=== PATIENT | male | born 1960 | race Hispanic/Latino ===

== ENCOUNTER 2017-01-14 11:27 | Emergency (ER) | payer MEDICARE, BC ==
[2017-01-14 11:27] VITALS: BMI 26.7
[2017-01-14 11:35] VITALS: RESP 16; TEMP 98.1; O2SAT 98
[2017-01-14] MEDS ORDERED: TDAP Vaccine 0.5 mL Syr IM ONE (11:51)
[2017-01-14] MEDS ORDERED: Tmp-Smz 800 mg-160 mg DS Tab PO STA (11:51)
--- NOTE | 2017-01-14 12:33 | ED PDOC ---
Arrival/HPI - General Chief Complaint: Abnormal Skin Integrity Time Seen by Provider: 01/14/17 11:28 Historian: Patient - History of Present Illness Narrative History of Present Illness (Text): 01/14/17 12:39 56yr old male presents today with laceration to left thumb with box stapler. denies pain. denies decreased rom of thumb. pt unsure of last tetanus shot. incident occurred prior to arrival. Time/Duration: Prior to Arrival Symptom Onset: Sudden Symptom Course: Unchanged Past Medical History - Provider Review Nursing Documentation Reviewed: Yes - Travel History Have you recently traveled outside [place] w/in the past 3 mons?: No - Infectious Disease Hx of Infectious Diseases: None - Tetanus Immunization Tetanus Immunization: Unknown - Cardiac Hx Cardiac Disorders: Yes (htn, high cholesterol) Hx Hypertension: Yes Hx Pacemaker: No Hx Peripheral Vascular Disease: Yes Other/Comment: right foot 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, right foot 2nd toe small 2cm ulcer - Pulmonary Hx Pneumonia: Yes - Neurological Hx Paralysis: No Hx Transient Ischemic Attacks (TIA): Yes (difficulty speaking resolved) Other/Comment: confused - HEENT Hx HEENT Disorder: Yes (diabetic retinopothy,left eye ctaract sx) Hx Cataracts: Yes - Renal Hx Renal Disorder: Yes Hx Dialysis: Yes ([facility]) Date of Last Dialysis Treatment: 07/19/13 Hx Renal Failure: Yes Other/Comment: esrd, renal dialysis t t sat, right av shunt, on hd 2 yrs - Endocrine/Metabolic Hx Diabetes Mellitus Type 1: Yes Hx Diabetes Mellitus Type 2: Yes - Hematological/Oncological Hx Anemia: Yes Hx Blood Transfusions: Yes Hx Blood Transfusion Reaction: No - Musculoskeletal/Rheumatological Hx Musculoskeletal Disorders: Yes Hx Arthritis: Yes (both feet) Hx Falls: No - Gastrointestinal Hx Gastroesophageal Reflux: Yes - Psychiatric Hx Anxiety: Yes Hx Depression: No Hx Emotional Abuse: No Hx Physical Abuse: No Hx Substance Use: No - Surgical History Hx Amputation: Yes (R 3rd toe) Hx Musculoskeletal Surgery: Yes (R 3rd, 4th, and 5th toe amputation) - Anesthesia Hx Anesthesia: Yes - Suicidal Assessment Feels Threatened In Home Enviroment: No Family/Social History - Physician Review Nursing Documentation Reviewed: Yes Family/Social History: Unknown Family HX Smoking Status: Never Smoked Hx Alcohol Use: No Hx Substance Use: No Hx Substance Use Treatment: No Allergies/Home Meds Allergies/Adverse Reactions: Allergies Penicillins Allergy (Verified 01/14/17 11:28) ANAPHYLAXIS per Home Medications: Home Meds Medication Instructions Recorded Confirmed Alprazolam [Xanax] 0.5 mg PO PRN PRN 02/06/15 02/06/15 Cinacalcet [Sensipar] 30 mg PO QOTHERDAY 02/06/15 02/06/15 Ferrous Sulfate [Ferrous Sulfate] 65 mg PO DAILY 02/06/15 02/06/15 Insulin Human (NPH)/Regular 5 units SUBCUT PRN PRN 02/06/15 02/06/15 [Novolin 70/30 (70/30 units/ml) 10 ml] Lactulose [Generlac] 2 tbs PO DAILY 02/06/15 02/06/15 Lanthanum [Fosrenol] 1 tab PO AC 02/06/15 02/06/15 Multivitamin [Allyson-Plus G] 1 cap PO DAILY 02/06/15 02/06/15 Nebivolol HCl [Bystolic] 5 mg PO DAILY 02/06/15 02/06/15 Omeprazole [Prilosec] 40 mg PO DAILY 02/06/15 02/06/15 Temazepam [Temazepam] 60 mg PO HS 02/06/15 02/06/15 Valsartan [Diovan] 320 mg PO DAILY 02/06/15 02/06/15 amLODIPine [Norvasc] 10 mg PO DAILY 02/06/15 02/06/15 oxyCODONE/Acetaminophen [Percocet 1 tab PO PRN PRN 02/06/15 02/06/15 5/325 mg Tab] Gabapentin [Neurontin] 200 mg PO BID PRN 02/07/15 02/07/15 Review of Systems - Review of Systems Constitutional: absent: Fatigue, Fevers Respiratory: absent: SOB, Cough Cardiovascular: absent: Chest Pain, Palpitations Musculoskeletal: Arthralgias Skin: Laceration (left thumb) Neurological: absent: Headache, Dizziness Psychiatric: absent: Anxiety, Depression Physical Exam Vital Signs Reviewed: Yes Vital Signs Temp Pulse Resp BP Pulse Ox 01/14/17 11:28 98.1 F 70 16 187/76 H 98 Temperature: Afebrile Blood Pressure: Hypertensive Pulse: Regular Respiratory Rate: Normal Appearance: Positive for: Well-Appearing, Non-Toxic, Comfortable Pain Distress: None Mental Status: Positive for: Alert and Oriented X 3 - Systems Exam Head: Present: Atraumatic Mouth: Present: Moist Mucous Membranes Neck: Present: Normal Range of Motion Respiratory/Chest: Present: Clear to Auscultation Cardiovascular: Present: Regular Rate and Rhythm Upper Extremity: Present: NORMAL PULSES, Neurovascularly Intact, Capillary Refill < 2s. No: Normal ROM (left thumb; there is a large 4cm linear laceration over the dorsal aspect of the thumb along the mcp joint; minimal bleeding noted. ), Tenderness, Swelling, Erythema, Deformity Neurological: Present: GCS=15 Skin: Present: Warm, Dry Psychiatric: Present: Alert, Oriented x 3 Medical Decision Making ED Course and Treatment: 01/14/17 12:24 pt non toxic well appearing; no distress. xray left thumb; no fracture or foreign body tetanus updated pt started on bactrim po case discussed with dr. crowell patients PMD who saw patient at bedside. will refer to dr. demarco/taty for f/u. case discussed with dr. posey in depth; she advised irrigation and repair and call monday to schedule f/u appointment for mondayJanuary 17 or january 19. Wound irrigated well with high pressure irrigation Laceration repair: 8 sutures placed Bacitracin and dressing applied finger splint applied. Patient was advised to keep the wound clean and dry, apply bacitracin twice daily, take antibiotics as prescribed. advised f/u with the Hand specialist as soon as possible. Advised to return immediately if signs of infection develop or return if any other concerning symptoms develop Impression: Laceration, thumb Motrin every 6 hours as needed for pain Bactrim DS one tablet twice daily x 7 days Keep the wound clean and dry, apply bacitracin twice daily Return in 10 days for suture removal Return immediately if signs of infection develop: High fevers, increasing pain, redness, swelling, purulent discharge Follow up with the hand specialist dr. posey; call on monday to schedule an appointment. . Followup with primary care physician within the next 2 days Return if any other concerning symptoms develop - RAD Interpretation Radiology Orders: 01/14/17 11:51 HAND LEFT THUMB [RAD] Stat - Medication Orders Current Medication Orders: Discontinued Medications Tetanus/Reduced Diphtheria/Acell Pertussis (Boostrix Vaccine Inj) 0.5 ml IM .ONCE ONE Stop: 01/14/17 11:52 Last Admin: 01/14/17 12:16 Dose: 0.5 ml Trimethoprim/Sulfamethoxazole (Bactrim Ds Tab) 1 tab PO STAT STA PRN Reason: Protocol Stop: 01/14/17 11:52 Last Admin: 01/14/17 12:16 Dose: 1 tab Procedure: Wound Repair - Procedure Procedure: Wound Repair: thumb laceration - Consent Obtained Consent obtained: Verbal - Performed by Performed by: Mid-level Provider - Indications Indication(s):: Laceration - Location Location:: Dorsal Finger:: Left, Thumb Shape:: Linear Dimensions Length cm: 4cm - Anesthetic Technique Local/Regional Anesthetic:: Lidocaine 1% (2cc) - Debris Debris:: None - Irrigated Irrigated with ml of normal saline: copious amounts of NS using high pressure irrigation - Complexity Complexity:: Simple (one layer) - Wound repair method Sutures:: # (8), Size (5.0), Type (nylon), Technique (interrupted) - Complications Complications: none - Patient tolerated procedure Patient Tolerated Procedure:: Well Disposition/Present on Arrival - Present on Arrival Any Indicators Present on Arrival: Yes History of DVT/PE: No History of Uncontrolled Diabetes: Yes Urinary Catheter: No History of Decub. Ulcer: No History Surgical Site Infection Following: None - Disposition Have Diagnosis and Disposition been Completed?: Yes Diagnosis: Laceration of thumb Disposition: HOME/ ROUTINE Disposition Time: 12:37 Patient Plan: Discharge Condition: GOOD Discharge Instructions (ExitCare): Laceration (ED) Additional Instructions: tylenol every 4 hours as needed for pain. Bactrim DS one tablet twice daily x 7 days Keep the wound clean and dry, apply bacitracin twice daily Return in 10 days for suture removal Return immediately if signs of infection develop: High fevers, increasing pain, redness, swelling, purulent discharge Follow up with the hand specialist (dr. posey); call on monday to schedule an appointment. . Followup with primary care physician within the next 2 days Return if any other concerning symptoms develop Prescriptions: Sulfamethoxazole/Trimethoprim [Bactrim DS 800 mg-160 mg] 1 tab PO BID #14 tab Referrals: Kely Posey MD [Non-Staff] - Follow up with primary George Crowell MD [Staff Provider] - Follow up with primary
--- NOTE | 2017-01-14 12:44 | RAD ---
PROCEDURE: Left Hand and thumb Radiographs. HISTORY: left thumb laceration COMPARISON: None. FINDINGS: BONES: Normal. No fracture. JOINTS: Normal. No osteoarthritic changes. SOFT TISSUES: Normal. OTHER FINDINGS: None. IMPRESSION: No fracture or foreign body
[2017-01-14] MEDS ORDERED: Lidocaine 1% Inj (20ml) ONE (12:50)
[2017-01-14 13:44] VITALS: BP 180/85; PULSE 62
== END 2017-01-14 13:44 | disposition home or self-care (01) ==
LOC: ED 11:27
DX: S61.012A Laceration without foreign body of left thumb without damage to nail, initial encounter (principal); W27.8XXA Contact with other nonpowered hand tool, initial encounter; Y93.89 Activity, other specified; Y92.89 Other specified places as the place of occurrence of the external cause; Z23 Encounter for immunization

== ENCOUNTER 2017-01-31 21:45 | Observation (INO) | payer MEDICARE, BC ==
--- NOTE | 2017-01-31 22:03 | EDPD ---
HPI Stroke - General Time Seen by Provider: 01/31/17 21:53 Chief Complaint: Weakness/Neurological Deficit Historian: Patient, Family - History of Present Illness Narrative History of Present Illness (Free Text): 01/31/17 21:59 Gene Rico is a 56 year old male, whose past medical history includes ESRD on hemodialysis, diabetes, TIA, and hypertension, who presents to the accompanied by family complaining of slurred speech. Patient reports he has been experiencing intermittent slurred speech with associated weakness for the past 5 days, following dialysis. Patient is ataxic with unsteady gait. Patient states slurred speech has resolved currently but is still unable to ambulate on his own secondary to weakness. Patient denies headache, dizziness, focal deficits, any chest pain, shortness of breath, nausea, vomiting, diarrhea, neck pain, or any other complaints. Date:: 01/31/17 Time: 21:59 Onset:: Days Timing: Intermittent Context: Home Associated Symptoms: other (Sluured speech, ataxia) Exacerbated by: Nothing Relieved by: Nothing - Location Location: Speech rTPA Inclusion/Exclusion - Refusal of Treatment Patient Refused Treatment: No - Inclusion Criteria for Altepase Patient is 18 years or Older: Yes The Clinical Diagnosis of Ischemic Stroke That is Causing a Potentially Disabling Neurological Deficit: No Time of Onset is Well Established to be Less Than 270 Minute Before Treatment Would Begin: No Risk/Benefit Discussed With Patient/Family Member Present: Yes - Exclusion Criteria for Altepase Uncontrolled Hypertension at Time of Treatment (Systolic BP above 185 or Diastolic BP above 110 mmHg): No Active Internal Bleeding: No Evidence of an Intracranial Hemorrhage: No Evidence of Major Acute Infarct With Signs Greater Than 1/3 MCA Territory: No Suspicion of Subarachnoid Hemorrhage on Pretreatment Evaluation Even if CT Head Negative For Hemorrhage: No - Warning to TPA With Conditions Following Conditions Weighed Against Anticipated Benefit: Yes Condition: Stroke Serevity Too Mild, Rapid Improvement Past Medical History - Provider Review Nursing Documentation Reviewed: Yes - Infectious Disease Hx of Infectious Diseases: None - Tetanus Immunization Tetanus Immunization: Unknown - Cardiac Hx Cardiac Disorders: Yes (htn, high cholesterol) Hx Hypertension: Yes Hx Pacemaker: No Hx Peripheral Vascular Disease: Yes Other/Comment: right foot 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, right foot 2nd toe small 2cm ulcer - Pulmonary Hx Pneumonia: Yes - Neurological Hx Paralysis: No Hx Transient Ischemic Attacks (TIA): Yes (difficulty speaking resolved) Other/Comment: confused - HEENT Hx HEENT Disorder: Yes (diabetic retinopothy,left eye ctaract sx) Hx Cataracts: Yes - Renal Hx Renal Disorder: Yes Hx Dialysis: Yes (MWF) Date of Last Dialysis Treatment: 07/19/13 Hx Renal Failure: Yes Other/Comment: esrd, renal dialysis t t sat, right av shunt, on hd 2 yrs - Endocrine/Metabolic Hx Diabetes Mellitus Type 1: Yes Hx Diabetes Mellitus Type 2: Yes - Hematological/Oncological Hx Anemia: Yes Hx Blood Transfusions: Yes Hx Blood Transfusion Reaction: No - Musculoskeletal/Rheumatological Hx Musculoskeletal Disorders: Yes Hx Arthritis: Yes (both feet) Hx Falls: No - Gastrointestinal Hx Gastroesophageal Reflux: Yes - Psychiatric Hx Anxiety: Yes Hx Depression: No Hx Emotional Abuse: No Hx Physical Abuse: No Hx Substance Use: No - Surgical History Hx Amputation: Yes (R 3rd toe) Hx Musculoskeletal Surgery: Yes (R 3rd, 4th, and 5th toe amputation) - Anesthesia Hx Anesthesia: Yes - Suicidal Assessment Feels Threatened In Home Enviroment: No Family/Social History - Family/Social History Family History: Non-Contributory - Review Nursing documentation reviewed.: Yes Allergies/Home Meds Allergies/Adverse Reactions: Allergies Penicillins Allergy (Verified 01/14/17 11:28) ANAPHYLAXIS per Home Medications: Home Meds Medication Instructions Recorded Confirmed Alprazolam [Xanax] 0.5 mg PO PRN PRN 02/06/15 02/06/15 Cinacalcet [Sensipar] 30 mg PO QOTHERDAY 02/06/15 02/06/15 Ferrous Sulfate [Ferrous Sulfate] 65 mg PO DAILY 02/06/15 02/06/15 Insulin Human (NPH)/Regular 5 units SUBCUT PRN PRN 02/06/15 02/06/15 [Novolin 70/30 (70/30 units/ml) 10 ml] Lactulose [Generlac] 2 tbs PO DAILY 02/06/15 02/06/15 Lanthanum [Fosrenol] 1 tab PO AC 02/06/15 02/06/15 Multivitamin [Allyson-Plus G] 1 cap PO DAILY 02/06/15 02/06/15 Nebivolol HCl [Bystolic] 5 mg PO DAILY 02/06/15 02/06/15 Omeprazole [Prilosec] 40 mg PO DAILY 02/06/15 02/06/15 Temazepam [Temazepam] 60 mg PO HS 02/06/15 02/06/15 Valsartan [Diovan] 320 mg PO DAILY 02/06/15 02/06/15 amLODIPine [Norvasc] 10 mg PO DAILY 02/06/15 02/06/15 oxyCODONE/Acetaminophen [Percocet 1 tab PO PRN PRN 02/06/15 02/06/15 5/325 mg Tab] Gabapentin [Neurontin] 200 mg PO BID PRN 02/07/15 02/07/15 Review of Systems - Physician Review All systems were reviewed & negative as marked: Yes - Review of Systems Constitutional: Normal Eyes: Normal ENT: Normal Respiratory: Normal. absent: SOB, Cough Cardiovascular: Normal. absent: Chest Pain Gastrointestinal: Normal. absent: Abdominal Pain, Diarrhea, Nausea, Vomiting Genitourinary Male: Normal Musculoskeletal: Normal. absent: Back Pain, Neck Pain Skin: Normal Neurological: Gait Changes, Speech Changes (+slurred speech), Other (+ataxia) Endocrine: Normal Hemo/Lymphatic: Normal Psychiatric: Normal ED Stroke Physical Exam Vital Signs Reviewed: Yes Vital Signs Temp Pulse Resp BP Pulse Ox 01/31/17 21:52 98.1 F 70 13 178/82 H 99 Temperature: Afebrile Blood Pressure: Normal Pulse: Regular Respiratory Rate: Normal Appearance: Positive for: Well-Appearing, Non-Toxic, Comfortable Pain Distress: None Mental Status: Positive for: Alert and Oriented X 3 - Systems Exam Head: Present: Atraumatic, Normocephalic Pupils: Present: PERRL Extroacular Muscles: Present: EOMI Conjunctiva: Present: Normal Ears: Present: Normal, NORMAL TM, Normal Canal. No: Erythema, TM Bulging, Fluid , TM Perf Mouth: Present: Moist Mucous Membranes Pharnyx: Present: Normal. No: ERYTHEMA, EXUDATE, TONSILS ENLARGED, Peritonsilar Swelling, Uvular Deviation, Muffled/Hoarse Voice, Strider, Soft Palate/Uvular Edema Nose (External): Present: Atraumatic Nose (Internal): Present: Normal Inspection Neck: Present: Normal Range of Motion, Other (Supple). No: Meningeal Signs, MIDLINE TENDERNESS, Paraspinal Tenderness Respiratory/Chest: Present: Clear to Auscultation, Good Air Exchange. No: Respiratory Distress, Accessory Muscle Use Cardiovascular: Present: Regular Rate and Rhythm, Normal S1, S2. No: Murmurs Abdomen: Present: Normal Bowel Sounds. No: Tenderness, Distention, Peritoneal Signs Back: Present: Normal Inspection. No: CVA Tenderness, Midline Tenderness, Paraspinal Tenderness Upper Extremity: Present: Normal Inspection. No: Cyanosis, Edema Lower Extremity: Present: Normal Inspection. No: Edema Neurologic: Present: GCS=15, CN II-XII Intact, Motor Func Grossly Intact (Motor strength 5/5), Normal Sensory Function, Memory Normal, Dysmetric Finger to Nose (Slightly abnormal finger to nose). No: Facial Droop Skin: Present: Warm, Dry, Normal Color. No: Rashes Lymphatic: Present: OX3, NI, NC Psychiatric: Present: Alert, Oriented x 3, Normal Insight, Normal Concentration Medical Decision Making ED Course and Treatment: 01/31/17 21:59 Impression: 56 year old male presents for slurred speech, ataxia, unsteady gait, and weakness. Differential Diagnosis included but are not limited to: TIA vs. CVA Plan: -- CT Head w/o contrast -- EKG -- CXR -- Labs, blood type and screen, troponin, lipid panel -- Reassess and disposition Prior Visits: Notes and results from previous visits were reviewed. Progress Notes: 01/31/17 21:59 Code stroke called. Pt taken to CT scan. 01/31/17 22:03 Reviewed EKG, NSR at [address] bpm. LVH. Non-specific ST/T wave changes. Case discussed with Dr. Compa Larios, who is aware and agrees with plan. Pt is not a candidate for tPA due to resolution of symptoms. 01/31/17 23:00 Reviewed radiology, CT Head shows: Streak artifact limits evaluation of the skull base. No evidence of acute intracranial hemorrhage. CT can miss an acute nonhemorrhagic CVA. It should be noted that acute strokes may be initially radiologically occult on CT. If the patient is having persistent stroke like symptomatology, then MRI may be beneficial. CXR shows no active disease. 01/31/17 23:[address] Michaels, covering for Dr. Mayorga, who is aware and agrees with plan. Pt will go to Telemetry observation for TIA. 06/13/17 23:41 Case discussed with medical housekeeper cost controller, who is aware and agrees with plan. - Lab Interpretations I have reviewed the lab results: Yes - RAD Interpretation Narrative RAD Interpretations (Text): CT Head shows: Brain: Areas of decreased attenuation noted within the periventricular and subcortical white matter likely related to chronic microangiopathic ischemic changes given the patient's stated age.Streak artifact limits evaluation of the skull base. No evidence of acute intracranial hemorrhage. Correlate clinically. There is moderate diffuse cerebral atrophy present, consistent with this patient's age. Ventricles: Unremarkable. No ventriculomegaly. Bones/joints: See above. Soft tissues: Unremarkable. Vasculature: Atherosclerotic calcifications of the carotid siphons Sinuses: Unremarkable as visualized. No acute sinusitis. Mastoid air cells: Unremarkable as visualized. No mastoid effusion. IMPRESSION: Streak artifact limits evaluation of the skull base. No evidence of acute intracranial hemorrhage. CT can miss an acute nonhemorrhagic CVA. It should be noted that acute strokes may be initially radiologically occult on CT. If the patient is having persistent stroke like symptomatology, then MRI may be beneficial. Family Centered Specialist: ED Physician, Radiologist - EKG Interpretation Interpreted by ED Physician: Yes Type: 12 lead EKG NIHSS Scale ([place]) Time Performed: 21:59 - How Severe is the Stoke Baseline Level of Consciousness: 0=Alert LOC to Questions: 0=Both comments correct LOC to commands: 0=Obeys both correctly Best Gaze: 0=Normal Visual: 0=No visual loss Facial: 0=Normal Motor Arm - Left: 0=No drift Motor Arm - Right: 0=No drift Motor Leg - Left: 0=No drift Motor Leg - Right: 0=No drift Limb Ataxia: 2=Present both Sensory: 0=Normal Best Language: 0=No aphasia Dysarthia: 0=Normal articulation Extinction & Inattention (Neglect): 0=Normal, no object Score: 2 Risk Level: Minor Stroke Risk Disposition/Present on Arrival - Present on Arrival Any Indicators Present on Arrival: No History of DVT/PE: No History of Uncontrolled Diabetes: Yes Urinary Catheter: No History of Decub. Ulcer: No History Surgical Site Infection Following: None - Disposition Have Diagnosis and Disposition been Completed?: Yes Diagnosis: TIA (transient ischemic attack) Disposition: HOSPITALIZED Disposition Time: 23:47 Patient Plan: Observation Patient Problems: Current Active Problems Problem Status Onset TIA (transient ischemic attack) Acute Condition: STABLE Referrals: George Veliz MD [Primary Care Provider] - Follow up with primary
[2017-01-31 22:43] LABS: ADD MANUAL DIFF? NO
[2017-01-31 22:46] LABS: BASO # 0.03 K/mm3 (0.0-2.0); BASO % 0.6 % (0.0-3.0); EOS # 0.2 (0.0-0.7); EOS % 4.4 % (1.5-5.0); GRAN # 2.48 (1.4-6.5); GRAN % 49.9 % (50.0-68.0); LYMPH # 1.7 (1.2-3.4); LYMPH % 33.1 % (22.0-35.0); MEAN CELL VOLUME 90.3 fL (80.0-105.0); MEAN CORPUSCULAR HEMOGLOBIN 29.9 pg (25.0-35.0); MEAN CORPUSCULAR HGB CONC 33.1 g/dl (31.0-37.0); MEAN PLATELET VOLUME 10.2 fl (7.0-11.0); MONO # 0.6 (0.1-0.6); PLATELET COUNT 144 10^3/uL (120.0-450.0); RED CELL DISTRIBUTION WIDTH 16.2 % (11.5-14.5)
[2017-01-31 22:59] LABS: ALB/GLOB RATIO 1.5 (1.1-1.8); ALKALINE PHOSPHATASE 103 U/L (38-133); ALT/SGPT 33 U/L (7-56); AST/SGOT 32 U/L (15-59); BILIRUBIN,TOTAL 0.6 mg/dL (0.2-1.3); BLOOD UREA NITROGEN 59 mg/dL (7-21); CALCIUM 8.6 mg/dL (8.4-10.5); CARBON DIOXIDE 31 mmol/L (21-33); CHLORIDE 91 mmol/L (98-107); CHOLESTEROL 116 mg/dL (130-200); GFR AFRICAN-AMERICAN 6; GLUCOSE,RANDOM 55 mg/dL (70-110); POTASSIUM 4.8 mmol/L (3.6-5.0); SODIUM 137 mmol/L (132-148); TOTAL PROTEIN 7.1 g/dL (5.8-8.3)
[2017-01-31 23:06] LABS: INR 0.99 (0.93-1.08); PARTIAL THROMBOPLASTIN TIME 28.9 Seconds (23.7-30.8)
[2017-01-31 23:20] LABS: TROPONIN I < 0.01 ng/mL
[2017-01-31] MEDS ORDERED: Dextrose 50% SYRINGE Inj (50 ml) IVP STA (23:44)
[2017-01-31] MEDS ORDERED: Oxycodone/Acetaminophen 5/325 mg Tab PO PRN ×2 (23:47→23:52)
--- NOTE | 2017-02-01 00:22 | CP.PCM.HP ---
History of Present Illness - History of Present Illness History of Present Illness: CC: Slurred speech and abnormal gait This patient is a 56yo M w/ a PMhx of ESRD on Dialysis MWF w/ Dr. Grimes, HTN, DMII on Insulin, Anxiety/Insomnia, previous TIA who is presenting to the ED for a 24 hour history of slurred speech and ataxic gait. The patient is normally ambulatory with a cane, and as per he has been off balance and speaking strangly (slurred) for the past 24 hours. They attributed this due to low glucose, which he has had for the past day. He denies any CP, SOB, GIL, changes in vision, abdominal pain, N/V/D, dysuria/freq/urg, or lower extremity pain/ swelling. PMhx: ESRD on Dialysis MWF, HTN, DMII on insulin, anxiety/depression, previous TIA Surgery: AV fistula on the Right arm, toe amputations on the right, Cataract surgery, laser ablation of arteries in eyes Allergies: PCN Social: lives at home with , disabled, former cigar smoker, former drinker, has not done any of them since being on dialysis Meds: please refer to MAR. Up to date on all cancer screenings Fam Hx: mom and dad with HTN, no history of cancer In the ED he was given aspirin and statin and a CT code stroke was ordered which showed no acute findings. His glucose was 57 and 25meq of D50 was ordered. Present on Admission - Present on Admission Any Indicators Present on Admission: No History of DVT/PE: No History of Uncontrolled Diabetes: Yes Urinary Catheter: No Decubitus Ulcer Present: No Review of Systems - Review of Systems All systems: reviewed and no additional remarkable complaints except Past Patient History - Infectious Disease Hx of Infectious Diseases: None - Tetanus Immunizations Tetanus Immunization: Unknown - Past Social History Smoking Status: Never Smoked - CARDIAC Hx Cardiac Disorders: Yes (htn, high cholesterol) Hx Hypertension: Yes Hx Pacemaker: No Hx Peripheral Vascular Disease: Yes Other/Comment: right foot 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, right foot 2nd toe small 2cm ulcer - PULMONARY Hx Pneumonia: Yes - NEUROLOGICAL Hx Paralysis: No Hx Transient Ischemic Attacks (TIA): Yes (difficulty speaking resolved) Other/Comment: confused - HEENT Hx HEENT Problems: Yes (diabetic retinopothy,left eye ctaract sx) Hx Cataracts: Yes - RENAL Hx Chronic Kidney Disease: Yes Hx Dialysis: Yes (MWF) Date of Last Dialysis Treatment: 07/19/13 Hx Renal Failure: Yes Other/Comment: esrd, renal dialysis t t sat, right av shunt, on hd 2 yrs - ENDOCRINE/METABOLIC Hx Diabetes Mellitus Type 1: Yes Hx Diabetes Mellitus Type 2: Yes - HEMATOLOGICAL/ONCOLOGICAL Hx Anemia: Yes Hx Blood Transfusions: Yes Hx Blood Transfusion Reaction: No - MUSCULOSKELETAL/RHEUMATOLOGICAL Hx Musculoskeletal Disorders: Yes Hx Arthritis: Yes (both feet) Hx Falls: No - GASTROINTESTINAL Hx Gastroesophageal Reflux: Yes - PSYCHIATRIC Hx Anxiety: Yes Hx Depression: No Hx Emotional Abuse: No Hx Physical Abuse: No Hx Substance Use: No - SURGICAL HISTORY Hx Amputation: Yes (R 3rd toe) Hx Musculoskeletal Surgery: Yes (R 3rd, 4th, and 5th toe amputation) - ANESTHESIA Hx Anesthesia: Yes Meds Allergies/Adverse Reactions: Allergies Allergy/AdvReac Type Severity Reaction Status Date / Time Penicillins Allergy ANAPHYLAXIS Verified 01/14/17 11:28 Physical Exam - Constitutional Appears: Non-toxic - Head Exam Head Exam: ATRAUMATIC - Eye Exam Eye Exam: EOMI, Normal appearance - ENT Exam ENT Exam: Mucous Membranes Moist - Neck Exam Neck exam: Positive for: Full Rom. Negative for: Lymphadenopathy - Respiratory Exam Respiratory Exam: Clear to Auscultation Bilateral. absent: Rales, Rhonchi, Wheezes - Cardiovascular Exam Cardiovascular Exam: REGULAR RHYTHM, +S1, +S2, Systolic Murmur - GI/Abdominal Exam GI & Abdominal Exam: Normal Bowel Sounds, Soft. absent: Organomegaly, Pulsatile Mass, Rebound, Rigid, Tenderness - Rectal Exam Rectal Exam: Deferred - Extremities Exam Extremities exam: Positive for: full ROM, normal inspection. Negative for: calf tenderness - Back Exam Back exam: NORMAL INSPECTION. absent: CVA tenderness (L), CVA tenderness (R) - Neurological Exam Neurological exam: Alert, CN II-XII Intact, Oriented x3, Reflexes Normal Additional comments: speech is slightly slurred to me but i have never talked to this patient before ; states speech is still slightly slrured. Gait is ataxic, he is very unsteady on his feet Results - Vital Signs Recent Vital Signs: Last Vital Signs Temp 98.7 F 01/31/17 23:35 Pulse 66 01/31/17 23:35 Resp 16 01/31/17 23:35 BP 140/66 01/31/17 23:35 Pulse Ox 100 01/31/17 23:35 - Labs Result Diagrams: 01/31/17 22:30 01/31/17 22:30 Assessment & Plan - Assessment and Plan (Free Text) Assessment: This is a 56yo M admitted for stroke like symptoms r/o Stroke -Code Stroke CT ordered and was negative; given aspirin and statin high dose -MRI ordered; f/u results; patient will need ativan before test because is extremely claustrophobic -Neurology Consult; Margot Larios; appreciate recs -blood pressure control; lipitor ESRD -MWF; Dr. Grimes -patient will need dialysis tomorrow after MRI -c/w all home meds Anemia;chronic -most likely 2/2 to ESRD -c/w home meds -monitor daily DMII w/ neuropathy -RISS; patient was hypoglycemia before; s/p 25meq of D50 in ER -maintain sugar between 140-180 -f/u HBA1C -c/w gabapentin HTN -c/w home meds Anxiety/Insomnia -Xanax TID .5mg -Temazepam before bed -patient will need ativan before MRI 2/2 to claustrophobia Proph Renal Diet Pepcid/Pantaprazole case discussed with Dr. Brando Guzman PGY1 Night Float Decision To Admit - Pt Status Changed To: Hospital Disposition Of: Inpatient Admission - Admit Certification Admit to Inpatient:: After my assessment, the patient will require hospitalization for at least two midnights. This is because of the severity of symptoms shown, intensity of services needed, and/or the medical risk in this patient being treated as an outpatient. - . Bed Request Type: Telemetry Admitting Physician: Phani Michaels NIHSS Scale (Belcher) Time Performed: 00:23 - How Severe is the Stoke Baseline Level of Consciousness: 0=Alert LOC to Questions: 0=Both comments correct LOC to commands: 0=Obeys both correctly Best Gaze: 0=Normal Visual: 0=No visual loss Facial: 0=Normal Motor Arm - Left: 0=No drift Motor Arm - Right: 0=No drift Motor Leg - Left: 0=No drift Motor Leg - Right: 0=No drift Limb Ataxia: 0=Absent Sensory: 0=Normal Best Language: 1=Mild to moderate aphasia Dysarthia: 1=Mild to moderate slurring Extinction & Inattention (Neglect): 0=Normal, no object Score: 2 Risk Level: Minor Stroke Risk
[2017-02-01 04:07] VITALS: BMI 23.4
[2017-02-01 04:49] VITALS: O2SAT 100
[2017-02-01] MEDS: LANTHANUM PO SCH ×3 (07:30→18:21)
[2017-02-01] MEDS ORDERED: Pantoprazole 40 mg EC Tab PO SCH (07:30)
[2017-02-01] MEDS: Insulin Lispro 1 UNITS/0.01 ML SC SCH ×3 (08:06→18:20)
--- NOTE | 2017-02-01 08:54 | RAD ---
HISTORY: tia COMPARISON: 02/06/2015 FINDINGS: LUNGS: Pulmonary vasculature appears top-normal. No consolidation appreciated PLEURA: No significant pleural effusion identified, no pneumothorax apparent. CARDIOVASCULAR: Mild cardiomegaly OSSEOUS STRUCTURES: No significant abnormalities. VISUALIZED UPPER ABDOMEN: Normal. OTHER FINDINGS: None. IMPRESSION: No interval pathology seen
--- NOTE | 2017-02-01 09:58 | CT ---
PROCEDURE: CT HEAD WITHOUT CONTRAST. HISTORY: Code Stroke COMPARISON: 07/22/2013 TECHNIQUE: Axial computed tomography images were obtained through the head/brain without intravenous contrast. Radiation dose: Total exam DLP = 857 mGy-cm. This CT exam was performed using one or more of the following dose reduction techniques: Automated exposure control, adjustment of the mA and/or kV according to patient size, and/or use of iterative reconstruction technique. FINDINGS: HEMORRHAGE: No intracranial hemorrhage. BRAIN: No mass effect or edema. No atrophy or chronic microvascular ischemic changes. VENTRICLES: Unremarkable. No hydrocephalus. CALVARIUM: Unremarkable. PARANASAL SINUSES: Unremarkable as visualized. No significant inflammatory changes. MASTOID AIR CELLS: Unremarkable as visualized. No inflammatory changes. OTHER FINDINGS: The report concurs with the preliminary [facility] report IMPRESSION: No acute finding
[2017-02-01] MEDS ORDERED: Multivitamin Vitamin B Complex (Nephro-Vite) Tab PO SCH (10:00)
[2017-02-01 11:50] VITALS: RESP 16; TEMP 97
--- NOTE | 2017-02-01 12:57 | CON ---
DATE: 02/01/2017 CHIEF COMPLAINT: Slurred speech. HISTORY OF PRESENT ILLNESS: A 56-year-old man with history of end-stage renal disease on dialysis [place] , Monday and Monday, hypertension, type 2 diabetes mellitus on insulin, anxiety, insomnia, had previous TIA, who presented to the ER because of slurred speech and has been off balance. Usually am bulates with a cane. His slurred speech was over 24 hours; therefore, no TPA was indicated. CT head showed no acute intracranial abnormalities. Currently, based on examination, he has a diabetic gait . He had also low blood sugar of 59, which could have collectively caused his transient symptoms. H e is currently back to his baseline. He has amputation of his toes from prior diabetic neuropathy. We will place him on aspirin and Plavix for stroke prevention. I walked him around without any diffi culty. PAST MEDICAL HISTORY: History of end-stage renal disease on dialysis Monday, Monday and Monday, h ypertension, type 2 diabetes mellitus, anxiety, insomnia and dyslipidemia, previous TIAs. REVIEW OF SYSTEMS: A 14-point review of systems is negative except as in the HPI. FAMILY HISTORY: Noncontributory. SOCIAL HISTORY: No illicit drug use, smoking, or ETOH abuse. PAST SURGICAL HISTORY: Right foot toes are partially amputated and right foot second toe small 2 cm ulcer. MEDICATIONS: Reviewed via nurse's reconciliation sheet. ALLERGIES: ALLERGIC TO PENICILLIN. PHYSICAL EXAMINATION: VITAL SIGNS: Temperature 97, blood pressure 126/65, respiratory rate 16, oxygen saturation 98% on ro om air. GENERAL: The patient is sitting up in bed in no acute distress. HEENT: Atraumatic, normocephalic. PERRLA. Extraocular muscles intact. NECK: Supple, no JVD, no adenopathy noted. LUNGS: Clear to auscultation. No adventitious sounds. HEART: S1, S2, normal rate and rhythm. No murmurs, rubs, or gallops. ABDOMEN: Soft, nontender, nondistended. Bowel sounds are present. EXTREMITIES: No clubbing, no cyanosis. Peripheral pulses 2+ felt bilaterally. NEUROLOGIC: The patient is alert, oriented to person, place, month and year. Speech is fluent, with out any errors. Cranial nerves II through XII are intact. MOTOR: Moves all extremities equally. No pronator drift seen. SENSORY: Decreased light touch and pinprick up to the calves bilaterally. DEEP TENDON REFLEXES: 2+ throughout and absent at the knees and the ankles. COORDINATION: Apqgqy-et-xtxy intact. Gait is slightly wide based with diabetic type of gait. Romber g negative. LABORATORY DATA: Sodium was 137, potassium 4.8, chloride 91, carbon dioxide 31, BUN of 59, creatinin e 10.5, random glucose 55. ASSESSMENT AND PLAN: This is a 56-year-old man with history of end-stage renal disease on hemodialys is Monday, Monday and Monday, history of hypertension, dyslipidemia, history of amputation of a fe w toes on the right, history of diabetes, on insulin, history of anxiety , history of transient ischemic attack, who presented with slurred speech and worsening ataxia on gait. His CAT scan of the head showed no acute intracranial abnormalities. Currently back to his baseline. He did have an ep isode of hypoglycemia with a blood sugar of 55 and is currently back a little bit higher now. MRI of the brain was not ordered due to patient is claustrophobic and his neuro exam is back to his baselin e. At this time, recommend: 1. He possibly had a transient ischemic event secondary to transient hypoglycemia. We will recommen d aspirin 81 mg and Plavix 75 mg for stroke prevention. 2. Recommend to control his blood sugars and avoid hypoglycemic events. Diabetic education given to the patient. Keep his blood sugars between 140-180. 3. His anemia is likely secondary to chronic disease. Continue with home meds. 4. Continue with Xanax 0.5 mg t.i.d. for his underlying anxiety and he is clinically stable from my standpoint. At this time, continue on current present medical management. Will sign off. Leonardo Larios MD cc: [id number] TT: 02/01/2017 12:56:45 Confirmation # [id number] Dictation # [id number] yun
[2017-02-01 14:38] LABS: ADD MANUAL DIFF? NO
[2017-02-01 14:44] LABS: BASO # 0.02 K/mm3 (0.0-2.0); BASO % 0.4 % (0.0-3.0); EOS # 0.2 (0.0-0.7); EOS % 5.3 % (1.5-5.0); GRAN # 2.32 (1.4-6.5); GRAN % 51.7 % (50.0-68.0); HEMATOCRIT 24.7 % (42.0-52.0); LYMPH # 1.4 (1.2-3.4); LYMPH % 31.3 % (22.0-35.0); MEAN CELL VOLUME 88.2 fL (80.0-105.0); MEAN CORPUSCULAR HEMOGLOBIN 29.3 pg (25.0-35.0); MEAN CORPUSCULAR HGB CONC 33.2 g/dl (31.0-37.0); MEAN PLATELET VOLUME 10.5 fl (7.0-11.0); MONO # 0.5 (0.1-0.6); MONO % 11.3 % (1.0-6.0); PLATELET COUNT 140 10^3/uL (120.0-450.0); RED CELL DISTRIBUTION WIDTH 15.9 % (11.5-14.5); WHITE BLOOD COUNT 4.5 10^3/ul (4.5-11.0)
[2017-02-01 14:57] LABS: ALB/GLOB RATIO 1.5 (1.1-1.8); BILIRUBIN,TOTAL 0.5 mg/dL (0.2-1.3); CALCIUM 8.5 mg/dL (8.4-10.5); POTASSIUM 5.2 mmol/L (3.6-5.0); TOTAL PROTEIN 6.7 g/dL (5.8-8.3)
[2017-02-01 15:15] LABS: FREE T4 0.94 ng/dL (0.78-2.19)
[2017-02-01 15:29] LABS: THYROID STIMULATING HORMONE 2.29 mIU/mL (0.46-4.68)
--- NOTE | 2017-02-01 16:07 | CARD ---
APPROVED REPORT EKG Measurement Heart [id number] <Conclusion> Normal sinus rhythm Minimal voltage criteria for LVH, may be normal variant Borderline ECG
--- NOTE | 2017-02-01 17:21 | CARD ---
APPROVED REPORT EXAM: Two-dimensional and M-mode echocardiogram with Doppler and color Doppler. INDICATION CODE STROKE 2D DIMENSIONS Left Atrium (2D)6.0 (1.6-4.0cm)IVSd1.6 (0.7-1.1cm) LVDd5.0 (3.9-5.9cm)PWd1.4 (0.7-1.1cm) LVDs3.0 (2.5-4.0cm)FS (%) 41.0 % LVEF (%)71.5 (>50%) M-Mode DIMENSIONS Aortic Root3.20 (2.2-3.7cm)Aortic Cusp Exc.2.00 (1.5-2.0cm) Aortic Valve AoV Peak Ptezvezu927.0cm/Michelle Peak GR.10mmHg Mitral Valve MV E Qzhadxxa933.0cm/sMV A Dkvyqwty61.3cm/sE/A ratio1.4 TDI Lateral E' Peak V10.50cm/sMedial E' Peak V6.14cm/sE/Lateral E'12.1 E/Medial E'20.7 Pulmonary Valve PV Peak Wgjjlzlr61.3cm/sPV Peak Grad.3mmHg Tricuspid Valve TR Peak Zaxqogtg850po/sRAP BXHNQMAC66anNcND Peak Gr.29mmHg [id number] LEFT VENTRICLE The left ventricle is normal size. There is moderate concentric left ventricular hypertrophy. The left ventricular function is normal. The left ventricular ejection fraction is within the normal range. There is normal LV segmental wall motion. Transmitral Doppler flow pattern is Grade II-pseudonormal filling dynamics. RIGHT VENTRICLE The right ventricle is normal size. There is normal right ventricular wall thickness. The right ventricular systolic function is normal. ATRIA The left atrium is moderately dilated. The right atrium is mildly dilated. AORTIC VALVE The aortic valve is mildly thickened. No aortic regurgitation is present. There is no aortic valvular stenosis. MITRAL VALVE The mitral valve is mildly thickened. Mitral regurgitation is trace to mild. TRICUSPID VALVE There is mild tricuspid regurgitation. There is mild pulmonary hypertension. GREAT VESSELS The aortic root is normal in size. PERICARDIAL EFFUSION There is no pericardial effusion. <Conclusion> The left ventricle is normal size. There is moderate concentric left ventricular hypertrophy. The left ventricular function is normal. The left ventricular ejection fraction is within the normal range. There is normal LV segmental wall motion. Mitral regurgitation is trace to mild. There is mild tricuspid regurgitation. There is mild pulmonary hypertension.
[2017-02-01 18:02] VITALS: PULSE 73
[2017-02-01 18:31] VITALS: BP 153/62
--- NOTE | 2017-02-01 19:32 | US ---
PROCEDURE: Bilateral carotid artery duplex ultrasound HISTORY: Carotid stenosis CVA PHYSICIAN(S): Graham Charles MD. TECHNIQUE: Duplex sonography and color-flow Doppler were used to evaluate the carotid bifurcations and limited segments of the vertebral arteries bilaterally. The patient did not allow completion of the left-sided evaluation. FINDINGS: There is mild to moderate focal echogenic plaque noted at the carotid bifurcations bilaterally. The peak systolic velocity in the proximal right internal carotid artery is 117 cm/sec. This corresponds to a 40-59 percent proximal right ICA stenosis. Normal systolic velocities are noted in the proximal right external carotid artery. There is antegrade flow in the right vertebral artery. The evaluation of the left carotid was not completed. Limited images of the left common carotid artery are patent. IMPRESSION: 1. Incomplete study. The patient did not allow completion of the left-sided evaluation. 2. 40-59 percent proximal right ICA stenosis.
[2017-02-01] MEDS ORDERED: TEMAZEPAM 60 MG PO SCH (22:00)
--- NOTE | 2017-02-02 06:54 | CP.PCM.DIS ---
Provider - Provider Date of Admission: 02/01/17 00:14 Attending physician: Eliseo Mayorga MD Primary care physician: George Veliz MD Consults: Neurology - Dr. Larios Time Spent in preparation of Discharge (in minutes): 30 Hospital Course - Lab Results Lab Results: Most Recent Lab Values WBC 4.5 10^3/ul (4.5-11.0) 02/01/17 14:20 RBC 2.80 10^6/uL (3.5-6.1) L 02/01/17 14:20 Hgb 8.2 gm/dL (14.0-18.0) L 02/01/17 14:20 Hct 24.7 % (42.0-52.0) L 02/01/17 14:20 MCV 88.2 fL (80.0-105.0) 02/01/17 14:20 MCH 29.3 pg (25.0-35.0) 02/01/17 14:20 MCHC 33.2 g/dl (31.0-37.0) 02/01/17 14:20 RDW 15.9 % (11.5-14.5) H 02/01/17 14:20 Plt Count 140 10^3/uL (120.0-450.0) 02/01/17 14:20 MPV 10.5 fl (7.0-11.0) 02/01/17 14:20 Gran % 51.7 % (50.0-68.0) 02/01/17 14:20 Lymph % (Auto) 31.3 % (22.0-35.0) 02/01/17 14:20 [place] % (Auto) 11.3 % (1.0-6.0) H 02/01/17 14:20 Eos % (Auto) 5.3 % (1.5-5.0) H 02/01/17 14:20 Baso % (Auto) 0.4 % (0.0-3.0) 02/01/17 14:20 Gran # 2.32 (1.4-6.5) 02/01/17 14:20 Lymph # 1.4 (1.2-3.4) 02/01/17 14:20 Independence # 0.5 (0.1-0.6) 02/01/17 14:20 Eos # 0.2 (0.0-0.7) 02/01/17 14:20 Baso # 0.02 K/mm3 (0.0-2.0) 02/01/17 14:20 PT 10.7 Seconds (9.9-11.8) 01/31/17 22:30 INR 0.99 (0.93-1.08) 01/31/17 22:30 APTT 28.9 Seconds (23.7-30.8) 01/31/17 22:30 Sodium 134 mmol/L (132-148) 02/01/17 14:20 Potassium 5.2 mmol/L (3.6-5.0) H 02/01/17 14:20 Chloride 93 mmol/L (98-107) L 02/01/17 14:20 Carbon Dioxide 25 mmol/L (21-33) 02/01/17 14:20 Anion Gap 21 (10-20) H 02/01/17 14:20 BUN 69 mg/dL (7-21) H 02/01/17 14:20 Creatinine 11.9 mg/dL (0.5-1.4) H* 02/01/17 14:20 Est GFR ( Amer) 5 02/01/17 14:20 Est GFR (Non-Af Amer) 4 02/01/17 14:20 POC Glucose (mg/dL) 83 mg/dL (65-110) 02/01/17 18:15 Random Glucose 114 mg/dL (70-110) H 02/01/17 14:20 Hemoglobin A1c 4.6 % (4.2-6.5) 01/31/17 22:30 Calcium 8.5 mg/dL (8.4-10.5) 02/01/17 14:20 Total Bilirubin 0.5 mg/dL (0.2-1.3) 02/01/17 14:20 AST 34 U/L (15-59) 02/01/17 14:20 ALT 30 U/L (7-56) 02/01/17 14:20 Alkaline Phosphatase 84 U/L (38-133) 02/01/17 14:20 Troponin I < 0.01 ng/mL D 01/31/17 22:30 Total Protein 6.7 g/dL (5.8-8.3) 02/01/17 14:20 Albumin 4.0 g/dL (3.0-4.8) 02/01/17 14:20 Globulin 2.7 gm/dL 02/01/17 14:20 Albumin/Globulin Ratio 1.5 (1.1-1.8) 02/01/17 14:20 Triglycerides 77 mg/dL (35-160) 01/31/17 22:30 Cholesterol 116 mg/dL (130-200) L 01/31/17 22:30 LDL Cholesterol Direct 43 mg/dL (0-129) 01/31/17 22:30 HDL Cholesterol 49 mg/dL (29-60) 01/31/17 22:30 Free T4 0.94 ng/dL (0.78-2.19) 02/01/17 14:20 TSH 3rd Generation 2.29 mIU/mL (0.46-4.68) 02/01/17 14:20 Blood Type B POSITIVE 01/31/17 22:30 Antibody Screen Negative 01/31/17 22:30 BBK History Checked Patient has bt 01/31/17 22:30 Discharge Plan - Follow Up Plan Condition: STABLE Disposition: AGAINST MEDICAL ADVICE Referrals: George Veliz MD [Primary Care Provider] -
--- NOTE | 2017-02-02 08:09 | CON ---
DATE: 02/01/2017 HISTORY OF PRESENT ILLNESS: A 56-year-old male with past medical history of hypertension, diabetes, previous TIA, anxiety/insomnia and ESRD on hemodialysis (Monday, Monday [place] [facility] [place] [facility] with Dr. Grimes) presented after several days of slurred speech, difficulty swallowing and unsteady gait. Nephrology being consulted for hemodialysis care. The patient reports that he was in his usual state of health until his dialysis session last (1 week ago), during which time the patient had more than usual ultrafiltration (reports usually ge ts about 2 liters UF, got 2.7 liters that Monday). The patient reports subsequently feeling very weak, within about 1-2 days. The patient reports having unsteady gait more than usual and by Monday was having slurred speech and difficulty swallowing. The patient reports that these symptoms continu ed throughout the weekend and the patient's family told him to go to the ER last night. The patient reports that prior to going to the ER his blood sugar on his machine at home was in the 90s. However , on arrival to the ER, blood sugar was in the 50s. Otherwise, patient reports that urination has de creased over the past few months. He takes 70/30 insulin up to 3 times a day and adjusts insulin bas ed on blood sugar. PAST MEDICAL HISTORY: As above. SOCIAL HISTORY: Former cigar smoker, former drinker. FAMILY HISTORY: Both parents with hypertension. REVIEW OF SYSTEMS: CONSTITUTIONAL: Denies fevers, chills, night sweats or decreased appetite. HEENT: No change in vision, no change in hearing, no sore throat or runny nose. RESPIRATORY: Denies any shortness of breath, denies any cough. CARDIOVASCULAR: Denies palpitations or chest pain. No swelling in legs. GASTROINTESTINAL: No nausea, vomiting, diarrhea or constipation. GENITOURINARY: No dysuria or hematuria. PSYCHIATRIC: Anxiety. NEUROLOGIC: Unsteady gait at baseline. No focal deficit reported. PHYSICAL EXAMINATION: VITAL SIGNS: Blood pressure this morning 149/64, heart rate 61, respirations 18, temperature 98.6, O 2 sat 100% on room air. GENERAL: No distress, conversing coherently in full sentences. HEENT: Moist mucous membranes, nonicteric. RESPIRATORY: Lungs are clear to auscultation bilaterally. No rales, no rhonchi, no wheezes. HEART: S1, S2 normal. No murmurs, no gallops, no rubs. GASTROINTESTINAL: Abdomen soft, nontender, nondistended. GENITOURINARY: No bladder distention. EXTREMITIES: No leg edema. SKIN: Warm, no cyanosis. Good capillary refill. NEUROLOGIC: Dysmetria present on bunjgj-ya-ccfr testing, especially with left hand. Ataxic gait. PSYCHIATRIC: Normal mood, normal affect. LABORATORY: From last night, WBC 5.0, hemoglobin 8.6, hematocrit 26.0, platelets 144. Chemistry harris el: Sodium 137, potassium 4.8, chloride 91, bicarb 31, BUN 59, creatinine 10.5, glucose 55, calcium 8.6. Chest x-ray: Image personally reviewed, clear, no pulmonary vascular congestion. ASSESSMENT AND PLAN: 1. Transient ischemic attack/cerebrovascular accident. The patient with ataxic gait, although does report unsteady gait at baseline. Also, with some dysmetria on exam. While hypoglycemia may be cont ributory need to pursue workup with neurology. 2. Hypoglycemia. May be corresponding to further loss of residual renal function over the last luann ral months as indicated by his history of decreased urination. The patient appears to be self-adjust ing his insulin dosing. May be better suited for basal insulin or holding insulin completely. 3. End-stage renal disease on hemodialysis, stable electrolyte and volume status. HD today per rout ine on 2 K, 2.5 calcium, 30 bicarb, dialysate with UF goal of 1.5 liters. 4. Hypertension. Blood pressure mildly elevated on amlodipine 10 mg daily and Bystolic 5 mg daily a s well as valsartan 320 mg daily. Continue the same. We will seek to avoid any hypotension on dialy sis. 5. Anemia. We will check outpatient records to look for any iron deficiency, likely getting Epo/Cami nesp per protocol. 6. Chronic kidney disease mineral bone disease. The patient on Renvela 2 tablets t.i.d. with meals, continue the same. Continue Sensipar 30 mg every other day. Ronnie Blair MD cc: [id number] TT: 02/01/2017 17:51:01 Confirmation # [id number] Dictation # [id number] mn
== END 2017-02-01 21:06 | disposition left against medical advice (07) ==
LOC: ED 21:45 → ERH 02-01 00:14 → 2RSO 02-01 02:47
PROVIDERS: ADMIT Internal Medicine; ATTEND Internal Medicine
DX: E11.649 Type 2 diabetes mellitus with hypoglycemia without coma (principal); N18.6 End stage renal disease; I12.0 Hypertensive chronic kidney disease with stage 5 chronic kidney disease or end stage renal disease; E11.22 Type 2 diabetes mellitus with diabetic chronic kidney disease; D63.1 Anemia in chronic kidney disease; E11.40 Type 2 diabetes mellitus with diabetic neuropathy, unspecified; E11.319 Type 2 diabetes mellitus with unspecified diabetic retinopathy without macular edema; R26.0 Ataxic gait; G47.00 Insomnia, unspecified; F40.240 Claustrophobia; E78.5 Hyperlipidemia, unspecified; Z99.2 Dependence on renal dialysis; Z79.4 Long term (current) use of insulin; Z86.73 Personal history of transient ischemic attack (TIA), and cerebral infarction without residual deficits; Z87.891 Personal history of nicotine dependence; Z88.0 Allergy status to penicillin
CPT/HCPCS: 36415; 70450; 71010; 80053; 80061; 82948; 83036; 84439; 84443; 84484; 85025; 85610; 85730; 86850; 86900; 87040; 93005; 93306; 93880; 96374; 97116; 97162; 97530; 99285; G0378; G8978; G8979